=== PATIENT | male | born 1970 | race Native Hawaiian/Other Pacific Islander ===

== ENCOUNTER 2017-07-27 19:06 | Emergency (ER) | payer OTHER ==
[~2017-07-27] VITALS: Ht 177.8 cm; Wt 99.8 kg
[2017-07-27 20:01] LABS: PLATELET COUNT 163 K/uL (142-355)
[2017-07-27 20:07] LABS: POTASSIUM 4.1 mmol/L (3.6-5.2); SODIUM 140 mmol/L (136-145)
== END 2017-07-27 22:58 | disposition home or self-care (01) ==
LOC: ED 19:06
DX: J18.9 Pneumonia, unspecified organism (principal); Z72.0 Tobacco use
CPT/HCPCS: 36415; 80053; 85027; 87081; 87804; 87880; 96372; 99283; J0696

== ENCOUNTER 2019-06-12 11:18 | Outpatient (CLI) | payer OTHER ==
[2019-06-12 11:55] LABS: PLATELET COUNT 189 K/uL (142-355)
[2019-06-12 12:26] LABS: POTASSIUM 4.3 mmol/L (3.6-5.2)
== END 2019-06-12 20:23 | disposition home or self-care (01) ==
LOC: LABW 11:18
PROVIDERS: Internal Medicine
DX: T14.8XXA Other injury of unspecified body region, initial encounter (principal); W57.XXXD Bitten or stung by nonvenomous insect and other nonvenomous arthropods, subsequent encounter
CPT/HCPCS: 36415; 80053; 85027; 85651; 86618

== ENCOUNTER 2019-06-26 16:06 | Outpatient (CLI) | payer OTHER | END 2019-06-26 22:20 | disposition home or self-care (01) | LOC: LABW 16:06 | DX: T14.8XXD Other injury of unspecified body region, subsequent encounter (principal); W57.XXXD Bitten or stung by nonvenomous insect and other nonvenomous arthropods, subsequent encounter | CPT/HCPCS: 36415; 86618 ==

== ENCOUNTER 2019-09-20 14:33 | Outpatient (CLI) | payer OTHER | END 2019-09-20 19:37 | disposition home or self-care (01) | LOC: RAD 14:33 | DX: R07.9 Chest pain, unspecified (principal) ==

== ENCOUNTER 2019-09-21 12:48 | Outpatient (CLI) | payer OTHER ==
[2019-09-21 13:23] LABS: PLATELET COUNT 236 K/uL (142-355)
[2019-09-21 15:22] LABS: POTASSIUM 4.5 mmol/L (3.6-5.2)
== END 2019-09-21 19:37 | disposition home or self-care (01) ==
LOC: LABW 12:48
PROVIDERS: Internal Medicine
DX: R07.9 Chest pain, unspecified (principal)
CPT/HCPCS: 36415; 80053; 80061; 81000; 82550; 82553; 84439; 84443; 84484; 85027; 85379

== ENCOUNTER 2020-05-30 19:57 | Emergency (ER) | payer OTHER ==
[~2020-05-30] VITALS: Ht 177.8 cm; Wt 99.8 kg
[2020-05-30 23:05] LABS: PLATELET COUNT 210 K/uL (142-355)
[2020-05-30 23:18] LABS: POTASSIUM 4.2 mmol/L (3.6-5.2)
[2020-05-31 00:25] VITALS: BP 150/105; TEMP 99.1
== END 2020-05-31 00:25 | disposition home or self-care (01) ==
LOC: ED 19:57
PROVIDERS: Family Medicine
DX: U07.1 COVID-19 (principal); J18.0 Bronchopneumonia, unspecified organism; R05 Cough
CPT/HCPCS: 36415; 80053; 85027; 87040; 96372; 99283; J0696; J2930

== ENCOUNTER 2020-12-04 17:41 | Outpatient (CLI) | payer OTHER ==
[2020-12-04 19:14] LABS: PLATELET COUNT 203 K/uL (142-355)
[2020-12-04 19:44] LABS: POTASSIUM 4.2 mmol/L (3.6-5.2)
== END 2020-12-04 20:43 | disposition home or self-care (01) ==
LOC: LABW 17:41
PROVIDERS: ATTEND Physician Assistant
DX: E88.81 Metabolic syndrome and other insulin resistance (principal); E66.9 Obesity, unspecified; I10 Essential (primary) hypertension; R53.83 Other fatigue; Z79.899 Other long term (current) drug therapy; M25.561 Pain in right knee; M54.40 Lumbago with sciatica, unspecified side
CPT/HCPCS: 36415; 80053; 80061; 82306; 83036; 84403; 84443; 85027

== ENCOUNTER 2021-02-18 13:32 | Emergency (ER) | payer OTHER ==
[~2021-02-18] VITALS: Ht 177.8 cm; Wt 108.9 kg
[2021-02-18 13:52] VITALS: TEMP 97.9
[2021-02-18 14:33] LABS: PLATELET COUNT 189 K/uL (142-355)
[2021-02-18 14:47] LABS: POTASSIUM 4.4 mmol/L (3.6-5.2)
[2021-02-18 16:40] VITALS: BP 144/82
== END 2021-02-18 16:48 | disposition home or self-care (01) ==
LOC: ED 13:32
PROVIDERS: Family Medicine
DX: R10.31 Right lower quadrant pain (principal)
CPT/HCPCS: 36415; 80053; 81000; 85027; 99283

== ENCOUNTER 2021-04-02 09:41 | Outpatient (CLI) | payer OTHER | END 2021-04-02 20:12 | disposition home or self-care (01) | LOC: MRI 09:41 | PROVIDERS: ATTEND Physician Assistant | DX: M47.27 Other spondylosis with radiculopathy, lumbosacral region (principal) ==

== ENCOUNTER 2022-02-03 12:11 | Outpatient (CLI) | payer BC | END 2022-02-03 18:56 | disposition home or self-care (01) | LOC: RAD 12:11 | PROVIDERS: ATTEND Internal Medicine | DX: M54.2 Cervicalgia (principal); M25.512 Pain in left shoulder ==